=== PATIENT | female | born 1945 | race Caucasian/White ===

== ENCOUNTER 2019-04-30 08:57 | Emergency (ER) | payer OTHER ==
[~2019-04-30] VITALS: Ht 172.7 cm; Wt 90.7 kg
[~2019-04-30 08:57] MED LIST: AMLO5CAP40
[2019-04-30] MEDS ORDERED: LORazepam 2MG/ML-1ML VIAL ONE (11:03)
[2019-04-30] MEDS ORDERED: LORazepam 2MG/ML-1ML VIAL IV ONE ×3 (11:15→15:30)
[2019-04-30] MEDS ORDERED: ONDANSETRON HCL 4 MG/2 ML VIAL ONE (11:33)
[2019-04-30] MEDS ORDERED: ONDANSETRON HCL 4 MG/2 ML VIAL IV ONE (11:45)
[2019-04-30 11:59] LABS: Chloride 100 mmol/L (98-107); Sodium 132 mmol/L (136-145)
[2019-04-30 12:07] LABS: Basophils # (auto) 0 uL; Basophils % (auto) 0.5 % (0.0-2.0); Eosinophils # (auto) 0.1 uL; Eosinophils % (auto) 1.1 % (0.0-7.0); Hematocrit 41.5 % (36.0-46.0); Hemoglobin 14.2 g/dL (12.2-16.2); Lymphocytes # (auto) 3.5 uL; Lymphocytes % (auto) 36.8 % (10.0-50.0); Mean Corpuscular Hemoglobin 32.9 pg (28.0-32.0); Mean Corpuscular Hgb Conc. 34.2 g/dL (32.0-36.0); Mean Corpuscular Volume 96.1 fL (80.0-100.0); Monocytes # (auto) 0.7 uL; Monocytes % (auto) 7.1 % (0.0-12.0); Neutrophils # (auto) 5.1 uL; Neutrophils % (auto) 54.5 % (37.0-80.0); Nucleated Red Blood Cells % 0.1 %; Platelet Count (auto) 242 10^3/uL (140-450); Red Blood Cells 4.32 10^6/uL (4.0-5.20); Red Cell Distribution Width 13.3 % (11.8-14.3); White Blood Cell 9.4 10^3/uL (4.4-10.8)
[2019-04-30 12:08] LABS: Alanine Aminotransferase 22 U/L (13-56); Alkaline Phosphatase 101 U/L (45-117); Anion Gap 15 (5-15); Aspartate Aminotransferase 17 U/L (15-37); BUN/Creatinine Ratio 9.1; Bilirubin, Total 0.5 mg/dL (0.2-1.0); Blood Urea Nitrogen 16 mg/dL (7-18); Calcium 8.9 mg/dL (8.5-10.1); Carbon Dioxide 17 mmol/L (21-32); GFR African American 37 mL/min; GFR Non-African American 30 mL/min; Glucose 233 mg/dL (74-106); Total Protein 7.9 g/dL (6.4-8.2)
[2019-04-30] MEDS ORDERED: PROMETHAZINE HCL 25 MG/ML 1ML ONE (14:22)
[2019-04-30] MEDS ORDERED: PROMETHAZINE HCL 25 MG/ML 1ML IV ONE (14:30)
[2019-04-30 15:02] VITALS: BP 137/40
== END 2019-04-30 15:34 | disposition short-term general hospital (02) ==
LOC: EDBD 08:57 → ER 08:59
DX: F44.5 Conversion disorder with seizures or convulsions (principal); F41.0 Panic disorder [episodic paroxysmal anxiety]; I10 Essential (primary) hypertension; R40.4 Transient alteration of awareness
CPT/HCPCS: 36415; 70450; 71045; 80053; 84484; 85025; 93005; 96374; 96375; 96376; 99285; J2060; J2405; J2550

== ENCOUNTER 2022-03-04 23:59 | Emergency (ER) | payer OTHER ==
[~2022-03-04] VITALS: Ht 165.1 cm; Wt 81.6 kg
[2022-03-05 01:13] LABS: Basophils # (auto) 0.1 10 ^3/uL (0-0.2); Eosinophils # (auto) 0.1 10 ^3/uL (0-0.8); Lymphocytes # (auto) 1.5 10 ^3/uL (0.4-5.4); Nucleated Red Blood Cells % 0.1 %
[2022-03-05 01:15] LABS: Eosinophils % (auto) 1.4 % (0.0-7.0); Hematocrit 41.7 % (36.0-46.0); Lymphocytes % (auto) 27.5 % (10.0-50.0); Mean Corpuscular Hemoglobin 35.2 pg (28.0-32.0); Mean Corpuscular Volume 97.9 fL (80.0-100.0); Monocytes # (auto) 0.3 10 ^3/uL (0-1.3); Neutrophils # (auto) 3.6 10 ^3/uL (1.6-8.6); Neutrophils % (auto) 64.1 % (37.0-80.0); Red Blood Cells 4.26 10^6/uL (4.0-5.20); Red Cell Distribution Width 12.8 % (11.8-14.3); White Blood Cell 5.6 10^3/uL (4.4-10.8)
[2022-03-05 01:31] LABS: BUN/Creatinine Ratio 9.7; Calcium 9.6 mg/dL (8.5-10.1); Potassium 4.1 mmol/L (3.5-5.1)
[2022-03-05 01:33] LABS: Bilirubin, Total 0.6 mg/dL (0.2-1.0); Total Protein 7.1 g/dL (6.4-8.2)
[2022-03-05] MEDS ORDERED: LORazepam 2MG/ML-1ML VIAL ONE (05:15)
[2022-03-05] MEDS ORDERED: LORazepam 2MG/ML-1ML VIAL IM ONE (05:15)
[2022-03-05] MEDS ORDERED: ONDANSETRON HCL 4 MG/2 ML VIAL IV ONE (05:15)
[2022-03-05] MEDS ORDERED: ONDANSETRON HCL 4 MG/2 ML VIAL ONE (05:16)
[2022-03-05 06:00] VITALS: BP 109/64
[2022-03-05] MEDS ORDERED: SODIUM CHLORIDE 0.9% 1,000 ML IV ONE (09:45)
[2022-03-05] MEDS ORDERED: IOHEXOL 300 MG/ML 100ML BOTTLE IJ ONE (10:43)
[2022-03-05] MEDS ORDERED: IOHEXOL 350 MG/ML 100ML IJ ONE (10:44)
[2022-03-05 11:55] LABS: Urine Bacteria FEW /hpf (None Seen); Urine Blood Negative /uL (Negative); Urine Specific Gravity 1.013 (1.001-1.035); Urine WBC 1 /hpf (0 - 5)
== END 2022-03-05 13:00 | disposition home or self-care (01) ==
LOC: ER 23:59 → EDBD 23:59 → ER 03-05 13:00
DX: F41.9 Anxiety disorder, unspecified (principal); R00.2 Palpitations; R51.9 Headache, unspecified
CPT/HCPCS: 36415; 70450; 71045; 71275; 80053; 81001; 84484; 85025; 85379; 93005; 96361; 96372; 96374; 99285; J7030; J2405

== ENCOUNTER 2024-04-03 13:44 | Emergency (ER) | payer OTHER, MEDICAID ==
[~2024-04-03] VITALS: Ht 167.6 cm; Wt 86.3 kg
[~2024-04-03 13:44] MED LIST changes: +AMLO5CAP2; -AMLO5CAP40; +CIPR-173 PO
[2024-04-03 14:15] VITALS: PULSE 109; RESP 21; O2SAT 97
[2024-04-03] MEDS: SODIUM CHLORIDE 0.9% 1,800 ML IV ONE (15:14)
[2024-04-03 15:31] LABS: Basophils # (auto) 0 10 ^3/uL (0-0.2); Basophils % (auto) 0.1 % (0.0-2.0); Eosinophils # (auto) 0 10 ^3/uL (0-0.8); Hematocrit 43.9 % (36.0-46.0); Hemoglobin 14.9 g/dL (12.2-16.2); Lymphocytes # (auto) 0.6 10 ^3/uL (0.4-5.4); Lymphocytes % (auto) 4.5 % (10.0-50.0); Mean Corpuscular Hemoglobin 33.4 pg (28.0-32.0); Mean Corpuscular Volume 98.3 fL (80.0-100.0); Monocytes # (auto) 1.5 10 ^3/uL (0-1.3); Monocytes % (auto) 10.6 % (0.0-12.0); Neutrophils # (auto) 12.1 10 ^3/uL (1.6-8.6); Neutrophils % (auto) 84.8 % (37.0-80.0); Nucleated Red Blood Cells % 0.1 %; Red Blood Cells 4.46 10^6/uL (4.0-5.20); Red Cell Distribution Width 13.3 % (11.8-14.3); White Blood Cell 14.3 10^3/uL (4.4-10.8)
[2024-04-03 15:43] LABS: Alanine Aminotransferase 160 U/L (7-40); Albumin 4.3 g/dL (3.2-4.8); Alkaline Phosphatase 88 U/L (46-116); Anion Gap 16 (5-15); Aspartate Aminotransferase 442 U/L (13-40); BUN/Creatinine Ratio 24.3 (10.0-20.0); Blood Urea Nitrogen 36 mg/dL (9-23); Calcium 9.6 mg/dL (8.7-10.4); Carbon Dioxide 20 mmol/L (20-30); Chloride 101 mmol/L (98-107); Glucose 142 mg/dL (74-106); Lipase 47 U/L (12-53); Potassium 4.1 mmol/L (3.5-5.1); Sodium 137 mmol/L (136-145); Total Protein 7.2 g/dL (5.7-8.2)
[2024-04-03] MEDS: VANCOMYCIN 1GM/200ML 200 ML IV ONE (17:02)
[2024-04-03] MEDS: PIPERACILLIN-TAZO 4.5GM 100 ML IV ONE (18:05)
[2024-04-03] MEDS: NYSTATIN TOPICAL POWDER 15GM TOP ONE (18:30)
[2024-04-03 19:31] LABS: COVID19 ANTIGEN SOFIA FIA NEGATIVE (NEGATIVE)
[2024-04-03 20:29] VITALS: PULSE 73; RESP 15; O2SAT 97
[2024-04-03 20:37] VITALS: BP 136/63; PULSE 73; RESP 15; TEMP 97.6; O2SAT 93
[2024-04-03] MEDS: ASPirin-EC 325mg tab PO ONE (20:46)
== END 2024-04-03 20:52 | disposition short-term general hospital (02) ==
LOC: ER 13:44 → EDBD 13:44 → ER 16:51
DX: A41.9 Sepsis, unspecified organism (principal); B35.4 Tinea corporis; D72.829 Elevated white blood cell count, unspecified; E86.0 Dehydration; F10.10 Alcohol abuse, uncomplicated; I10 Essential (primary) hypertension; E78.5 Hyperlipidemia, unspecified; J44.9 Chronic obstructive pulmonary disease, unspecified; Z79.899 Other long term (current) drug therapy; Z20.822 Contact with and (suspected) exposure to COVID-19; Y90.0 Blood alcohol level of less than 20 mg/100 ml
CPT/HCPCS: 36415; 71045; 74176; 80053; 80320; 83605; 83690; 84484; 85025; 87040; 87426; 93005; 96361; 96365; 96367; 99291; J2543; J3370; J7030

== ENCOUNTER 2024-06-27 12:32 | Emergency (ER) | payer OTHER, MEDICAID ==
[~2024-06-27] VITALS: Ht 162.6 cm; Wt 77.3 kg
[2024-06-27 13:08] VITALS: PULSE 68; RESP 16; TEMP 97.8; O2SAT 95
[2024-06-27 13:42] LABS: Basophils # (auto) 0 10 ^3/uL (0-0.2); Basophils % (auto) 0.5 % (0.0-2.0); Eosinophils # (auto) 0.1 10 ^3/uL (0-0.8); Eosinophils % (auto) 1.6 % (0.0-7.0); Hematocrit 37.7 % (36.0-46.0); Hemoglobin 12.9 g/dL (12.2-16.2); Lymphocytes # (auto) 1.8 10 ^3/uL (0.4-5.4); Lymphocytes % (auto) 19.1 % (10.0-50.0); Mean Corpuscular Hemoglobin 32.7 pg (28.0-32.0); Mean Corpuscular Hgb Conc. 34.3 g/dL (32.0-36.0); Mean Corpuscular Volume 95.3 fL (80.0-100.0); Monocytes # (auto) 0.5 10 ^3/uL (0-1.3); Monocytes % (auto) 5.9 % (0.0-12.0); Neutrophils # (auto) 6.7 10 ^3/uL (1.6-8.6); Neutrophils % (auto) 72.9 % (37.0-80.0); Red Blood Cells 3.95 10^6/uL (4.0-5.20); Red Cell Distribution Width 13.3 % (11.8-14.3); White Blood Cell 9.2 10^3/uL (4.4-10.8)
[2024-06-27] MEDS: SODIUM CHLORIDE 0.9% 1,000 ML IVB ONE (13:46)
[2024-06-27] MEDS: METOCLOPRAMIDE HCL 5MG/ml INJ 2ml VIAL IV ONE (13:51)
[2024-06-27 14:08] LABS: Alanine Aminotransferase 15 U/L (7-40); Albumin 3.7 g/dL (3.2-4.8); Alkaline Phosphatase 66 U/L (46-116); Anion Gap 7 (5-15); Aspartate Aminotransferase 19 U/L (13-40); Blood Urea Nitrogen 10 mg/dL (9-23); Calcium 9.2 mg/dL (8.7-10.4); Carbon Dioxide 25 mmol/L (20-30); Chloride 105 mmol/L (98-107); Glucose 115 mg/dL (74-106); Lipase 35 U/L (12-53); Magnesium 1.8 mg/dL (1.6-2.6); Potassium 3.9 mmol/L (3.5-5.1); Sodium 137 mmol/L (136-145)
[2024-06-27 14:09] LABS: Bilirubin, Total 0.4 mg/dL (0.2-1.0); Total Protein 6.9 g/dL (5.7-8.2)
[2024-06-27] MEDS: IOHEXOL 300 MG/ML 100ML BOTTLE IJ ONE (14:52)
[2024-06-27 15:18] LABS: Urine Bacteria FEW /hpf (None Seen); Urine Blood Negative /uL (Negative); Urine Clarity Clear (Clear); Urine Color Light-Yellow (Yellow); Urine Protein, UAD Negative (Negative); Urine Specific Gravity 1.007 (1.001-1.035); Urine Urobilinogen Normal (Negative); Urine WBC 41 /hpf (0 - 5); Urine pH 7.5 (5.0-9.0)
[2024-06-27] MEDS: LORazepam 2MG/ML-1ML VIAL IV ONE (16:23)
[2024-06-27] MEDS: cefTRIAXone 1GM/50ML D5W 50 ML IV ONE (16:24)
[2024-06-27] MEDS ORDERED: NITR-87 PO (17:33)
[2024-06-27] MEDS ORDERED: METR375C PO (17:33)
[2024-06-27] MEDS ORDERED: BISM262C44 PO (17:33)
[2024-06-27 17:49] VITALS: BP 156/74; PULSE 67; RESP 16; O2SAT 95
== END 2024-06-27 18:19 | disposition home or self-care (01) ==
LOC: EDBD 12:32 → ER 12:32
DX: S36.209A Unspecified injury of unspecified part of pancreas, initial encounter (principal); K52.9 Noninfective gastroenteritis and colitis, unspecified; R55 Syncope and collapse; N39.0 Urinary tract infection, site not specified; J44.9 Chronic obstructive pulmonary disease, unspecified; E78.5 Hyperlipidemia, unspecified; I10 Essential (primary) hypertension; Z98.890 Other specified postprocedural states; Z90.710 Acquired absence of both cervix and uterus; X58.XXXA Exposure to other specified factors, initial encounter; Y93.89 Activity, other specified; Y92.89 Other specified places as the place of occurrence of the external cause; Y99.8 Other external cause status
CPT/HCPCS: 36415; 71046; 74177; 80053; 81001; 83690; 83735; 84484; 85025; 93005; 96361; 96365; 96375; 99285; J0696; J2060; J2765; J7030; Q9967